=== PATIENT | male | born 1950 | race African-American/Black ===

== ENCOUNTER 2016-09-26 13:02 | Day surgery (SDC) | payer MEDICARE, OTHER ==
[2016-09-22 09:56] LABS: BASOPHILS 0.3 %; BASOPHILS ABSOLUTE 0.03 10/3/uL (0.0-0.16); EOSINOPHILS ABSOLUTE 0.21 10/3/uL (0.0-0.53); HEMATOCRIT 36.8 % (40.0-51.0); HEMOGLOBIN 12.7 g/dL (13.6-17.8); LYMPHOCYTES 33.2 %; LYMPHOCYTES ABSOLUTE 3.43 10/3/uL (0.67-4.30); MEAN CORPUS HGB CONC 34.5 g/dL (32.0-36.0); MEAN CORPUSCULAR VOLUME 81.2 fL (80-100); MEAN PLATELET VOLUME 11.4 fL (9.2-13.0); MONOCYTES 7.6 %; MONOCYTES ABSOLUTE 0.79 10/3/uL (0.21-1.20); NEUTROPHILS 55.9 %; NEUTROPHILS ABSOLUTE 5.77 10/3/uL (2.02-8.40); PLATELET COUNT 200 10/3/uL (150-400); RBC DISTRIBUTION WIDTH 14.7 % (12.0-16.0); RED CELL COUNT 4.53 10/6/uL (4.7-6.1); WHITE BLOOD CELLS 10.3 10/3/uL (4.5-10.5)
[2016-09-22 10:01] LABS: MANUAL DIFF NO %
[2016-09-22 10:08] LABS: BUN (BLOOD UREA NITROGEN) 20 MG/DL (6-23); CALCIUM, SERUM 8.9 MG/DL (8.5-10.4); CHLORIDE, SERUM 109 MMOL/L (96-112); CO2 (CARBON DIOXIDE) 29 MMOL/L (24-34); CREATININE 1.67 MG/DL (0.70-1.30); GFR AFRICAN AMERICAN 48 ML/MIN (>=60); GFR NON AFRICAN AMERICAN 42 ML/MIN (>=60); GLUCOSE, SERUM 114 MG/DL (60-99); POTASSIUM, SERUM 3.9 MMOL/L (3.5-5.3); SODIUM, SERUM 143 MMOL/L (135-148)
--- NOTE | ~2016-09-26 | OP ---
Record Of Operation [facility] [address] [place] [address] NAME: CARLENE HOOPER : [birth year] STATUS : [facility]#: [id number] AGE: 66 ADM/REG DATE : 09/26/16 MR#: [id number] REPORT SERV DATE: 09/26/16 DICTATED BY: ADRIEL OLIVO III DATE: 09/26/16 REPORT STATUS : Draft TRANSCRIBED BY: MODL DATE: 09/26/16 DATE OF PROCEDURE: 09/26/2016 PROCEDURE: Transrectal ultrasound prostate biopsy. PREOPERATIVE DIAGNOSIS: Adenocarcinoma of prostate on active surveillance for rebiopsy. DESCRIPTION OF PROCEDURE: He was induced under monitored anesthesia in the left lateral position. Even at sleep, I could not reach more than the apex of his prostate. The probe was slightly difficult to insert and required almost its full length to take an image of the prostate. The prostate was imaged, no definite hypoechoic areas were noted. Biopsies were taken from the base of mid glans and apex. This was done bilaterally. There was a moderate amount of bleeding and a sponge roll was placed in the rectum. He tolerated the procedure well. OB/MODL Adriel Olivo III, M.D. / [id number]
[~2016-09-26 13:02] MED LIST: 8 HOUR650 MG PO; ADVAIR100 INH; AVALIDE1 TA1 PO; COZAAR100 MG PO; DICLOFENAC50 MG OR; DIOV160 PO; HYDROCHLOROT12.5 MG PO; LEVSINTAB PO; METHOC750B PO; NORV10 PO; PROTONIX PO; PROVHFA INH; XALAT OPH
== END 2016-09-26 18:01 | disposition home or self-care (01) ==
LOC: SDC 13:02
PROVIDERS: Urology
PROC: 0VB03ZX Excision of Prostate, Percutaneous Approach, Diagnostic (ICD-10-PCS; principal; 2016-09-26 14:30)
DX: C61 Malignant neoplasm of prostate (principal); J44.9 Chronic obstructive pulmonary disease, unspecified; E66.9 Obesity, unspecified; G89.29 Other chronic pain; M54.9 Dorsalgia, unspecified; I10 Essential (primary) hypertension; Z88.5 Allergy status to narcotic agent; Z88.0 Allergy status to penicillin; Z88.8 Allergy status to other drugs, medicaments and biological substances; Z90.49 Acquired absence of other specified parts of digestive tract; Z98.890 Other specified postprocedural states; Z86.73 Personal history of transient ischemic attack (TIA), and cerebral infarction without residual deficits; Z68.41 Body mass index [BMI] 40.0-44.9, adult; Z79.899 Other long term (current) drug therapy
CPT/HCPCS: 76872; 76942; 80048; 85025; 88305; 88342; 88344; 93005; J1580; J2250; J3010